=== PATIENT | male | born 1965 | race African-American/Black ===

== ENCOUNTER 2025-05-17 15:53 | Emergency (ER) | payer MEDICARE, MEDICAID ==
[~2025-05-17] VITALS: Ht 185.4 cm; Wt 116.4 kg
[2025-05-17 16:08] VITALS: BP 106/80; PULSE 91; RESP 16; TEMP 99; O2SAT 99
[2025-05-17] MEDS ORDERED: GABA-1201 PO (16:13)
[2025-05-17] MEDS ORDERED: CEPH-558 PO (19:55)
[2025-05-17] MEDS ORDERED: DOXY-354 PO (19:55)
[2025-05-17] MEDS ORDERED: IBUP-1554 PO (19:55)
[2025-05-17] MEDS ORDERED: ACET-2080 PO (19:55)
== END 2025-05-17 20:22 | disposition home or self-care (01) ==
LOC: EMS 15:53
DX: L02.92 Furuncle, unspecified (principal); F17.210 Nicotine dependence, cigarettes, uncomplicated; Z98.890 Other specified postprocedural states; Z79.899 Other long term (current) drug therapy; Z96.651 Presence of right artificial knee joint
CPT/HCPCS: 99283; Z7502